=== PATIENT | female | born 1970 | race Caucasian/White ===

== ENCOUNTER 2017-08-08 15:09 | Emergency (ER) | payer BC ==
[2017-08-08 15:24] VITALS: BP 187/114
--- NOTE | 2017-08-08 15:35 | EDPHY ---
H & P Stated Complaint: Twisted R knee yesterday Time Seen by Provider: 08/08/17 15:34 HPI/ROS: Patient left prior to being seen as she advised the nurse that she did not want to pay for an emergency room bill. Source: Patient Exam Limitations: No limitations - Personal History LMP (Females 10-55): 1-7 Days Ago Current Tetanus Diphtheria and Acellular Pertussis (TDAP): No - Medical/Surgical History Other PMH: obesity. HTN - Social History Smoking Status: Never smoked Constitutional: Initial Vital Signs Temperature (C) 36.8 C 08/08/17 15:15 Heart Rate 94 08/08/17 15:15 Respiratory Rate 18 08/08/17 15:15 Blood Pressure 187/114 H 08/08/17 15:15 O2 Sat (%) 97 08/08/17 15:15 O2 Delivery Mode Room Air Allergies/Adverse Reactions: tetanus and diphtheria toxoids Allergy (Mild, Verified 08/08/17 15:18) Vomiting Home Medications: Medication Instructions Recorded Atorvastatin Calcium [Lipitor 40 40 mg PO 08/08/17 mg (*)] B P Pill 08/08/17 Departure - Departure Disposition: Left Without Being Seen Referrals: Benita Willingham MD [Primary Care Provider] - As per Instructions
== END 2017-08-08 15:42 | disposition left against medical advice (07) ==
DX: Z53.21 Procedure and treatment not carried out due to patient leaving prior to being seen by health care provider (principal)